=== PATIENT | male | born 1995 | race Caucasian/White ===

== ENCOUNTER 2017-09-07 09:37 | Emergency (ER) | payer SELFPAY ==
[2017-09-07 09:41] VITALS: BP 141/67
--- NOTE | 2017-09-07 10:20 | RAD ---
HISTORY: Pain, crush injury COMPARISONS: None VIEWS: 3, Frontal, lateral, and oblique views of the fifth digit of left hand FINDINGS: BONE DENSITY: Normal. BONES: There is a comminuted nondisplaced fracture of the tuft of the distal phalanx of the fifth digit JOINTS: There is no arthropathy. ALIGNMENT: There is no dislocation. SOFT TISSUES: Unremarkable. OTHER FINDINGS: None. IMPRESSION: COMMINUTED NONDISPLACED FRACTURE OF THE TUFT OF THE DISTAL PHALANX OF THE FIFTH DIGIT
--- NOTE | 2017-09-07 10:46 | ED ---
Upper Extremity Pain - HPI Summary HPI Summary: 21 male presents to ED with complaints of left pinky finger injury that occurred while at work just [employer]. Patient states he was using a machine when his tip of left pinky finger got crushed in between a piece of metal and wood. Admits to intense pain and some swelling. Denies taking any medications [employer]ERSON[employer]. No other injuries or complaints. No anticoagulant use. Unknown last tetanus. Admits to swelling and bruising. - History of Current Complaint Chief Complaint: EDExtremityUpper Stated Complaint: LT HAND INJURY Time Seen by Provider: 09/07/17 09:45 Hx Obtained From: Patient Mechanism Of Injury: Other - crush injury Onset/Duration: Started Hours Ago, Traumatic, Still Present, Worse Since Timing: Constant Severity Initially: Moderate Severity Currently: Moderate Pain Location: Finger - left fifth digit Character: Sharp, Aching, Throbbing Aggravating Factor(s): Movement Alleviating Factor(s): Compression Associated Signs & Symptoms: Positive: Swelling, Bruising Related History: Dominant Hand Right - Allergies/Home Medications Allergies/Adverse Reactions: Allergies Allergy/AdvReac Type Severity Reaction Status Date / Time No Known Allergies Allergy Verified 02/27/13 13:08 PMH/Surg Hx/FS Hx/Imm Hx Endocrine/Hematology History: Denies: Hx Anticoagulant Therapy, Hx Diabetes, Hx Thyroid Disease Cardiovascular History: Denies: Hx Hypertension, Hx Pacemaker/ICD Respiratory History: Denies: Hx Asthma, Hx Chronic Obstructive Pulmonary Disease (COPD) GI History: Denies: Hx Ulcer History: Denies: Hx Renal Disease Neurological History: Denies: Hx Dementia, Hx Seizures Psychiatric History: Denies: Hx Substance Abuse - Surgical History Surgery Procedure, Year, and Place: n/a - Immunization History Date of Tetanus Vaccine: updated today 09/07/17 Immunizations Up to Date: Yes Infectious Disease History: No Infectious Disease History: Denies: Hx Clostridium Difficile, Hx Hepatitis, Hx Human Immunodeficiency Virus (HIV), Traveled Outside the [place] in Last 30 Days - Family History Known Family History: Positive: None - Social History Alcohol Use: None Substance Use Type: Reports: None Smoking Status (MU): Never Smoked Tobacco Review of Systems Constitutional: Negative Cardiovascular: Negative Respiratory: Negative Positive: Arthralgia, Myalgia, Decreased ROM - left fifth digit, distal Positive: Other - laceration/abrasion Neurological: Negative All Other Systems Reviewed And Are Negative: Yes Physical Exam Triage Information Reviewed: Yes Vital Signs On Initial Exam: Initial Vitals Temp Pulse Resp BP Pulse Ox 98.7 F 74 18 141/67 98 09/07/17 09:38 09/07/17 09:38 09/07/17 09:38 09/07/17 09:38 09/07/17 09:38 Vital Signs Reviewed: Yes Appearance: Positive: Well-Appearing, Well-Nourished, Pain Distress - moderate Skin: Positive: Warm, Skin Color Reflects Adequate Perfusion, Dry, Other - after irrigation small superficial laceartion .5cm on fifth distal tuft, left hand lateral side of finger nail. minimal bleeding, with some subcutaneous/ adipose tissue sticking outside of wound. some other minor abrasions over tip of finger. no bleeding, closed and well approximated. ecchymosis and erythema of distal finger with nail eccchymosis, nailbed still intact however.. Negative : Cold, Numb, Cyanosis @, Pale, Erythema @ Eyes: Positive: Conjunctiva Clear ENT: Positive: Hearing grossly normal Neck: Positive: Supple, Nontender Respiratory/Lung Sounds: Positive: Clear to Auscultation, Breath Sounds Present. Negative: Rales, Rhonchi, Wheezes Cardiovascular: Positive: Normal, RRR, Pulses are Symmetrical in both Upper and Lower Extremities - 2+ radial bl. Negative: Murmur, Rub Musculoskeletal: Positive: Normal, Strength/ROM Intact, Pain @ - on palpation of distal tip fifth left digit, Edema Left - fifth distal DIP left, Other - no step off. Negative: Limited @, Interruption @ Neurological: Positive: Normal, Sensory/Motor Intact, Alert, Oriented to Person Place, Time, CN Intact II-III, NV Bundle Intact Distally, Normal Gait - [place] Coma Scale Coma Scale Total: 15 Procedures - Laceration/Wound Repair 1 Description: Linear - .5cm Anesthesia: Digital, 2.0%, Lido Length, Depth and Shape: .5cm linear left digit with tissue outside of wound Irrigated w/ Saline (ccs): 500 - high irrigation pressure used as well as soaking Laceration/Wound Explored: clean, no foreign body removed Closure: Skin Adhesive Debridement: external tissue placed back inside wound with forceps Sterile Dressing Applied?: Yes - telfa and xeroform Diagnostics - Vital Signs Vital Signs Temp Pulse Resp BP Pulse Ox 09/07/17 09:38 98.7 F 74 18 141/67 98 - Laboratory Lab Statement: Any lab studies that have been ordered have been reviewed, and results considered in the medical decision making process. - Radiology left fifth digit Xray Interpretation: Positive (See Comments) - COMMINUTED NONDISPLACED FRACTURE OF THE TUFT OF THE DISTAL PHALANX OF THE FIFTH DIGIT Radiology Interpretation Completed By: Radiologist Course/Dx - Course Course Of Treatment: xray obtained and showed communited nondisplaced fracture of tuft of distal left fifth digit. due to superficial laceration and abrasion on outside considered open fracture. will treat with antibiotics. wound was throughly irrigated and tissue placed back inside, small amount of skin adhesive used to close to prevent bleeding. dressed with xeroform and telfa. finger splint applied. RICE and ibuprofen. given ibuprofen while in ED. no concern for other etiology at this time. follow up ortho and pcp recheck. aware of worsening signs and symptoms. started on keflex. keep clean and dry. tetanus was updated today. - Diagnoses Differential Diagnosis/HQI/PQRI: Positive: Fracture (Open), Fracture (Closed), Strain, Sprain Provider Diagnoses: Fracture of finger, left, open Discharge - Discharge Plan Condition: Stable Disposition: HOME Prescriptions: Cephalexin CAP* [Keflex CAP*] 500 mg PO TID #30 cap Patient Education Materials: Finger Fracture (ED), Finger Laceration (ED) Referrals: Arie Hardin MD [Primary Care Provider] - Dat Mckeon MD [Medical Doctor] - Additional Instructions: Take prescribed antibiotic as directed. Recommend taking probiotics in between doses or eating japanese yogurt. Keep wounds clean and dry. Do not remove dressing for 2 days. At this time removed dressing, gently clean/rinse, apply triple anti-biotic and re-dress. Re-apply splint. Rest, ice, elevate. Ibuprofen for pain and inflammation. Take with food. Keep splint on until released by ortho/pcp. Follow up with ortho, call and make an appointment. Any new or worsening symptoms please seek medical attention promptly, as discussed (signs of infection, numbness/tingling etc.)
[2017-09-07] MEDS ORDERED: Lidocaine 2% 10 ML* VIAL INJ ONE (11:10)
[2017-09-07] MEDS ORDERED: Lidocaine 2% PF * 5 ML VIAL ONE (11:12)
[2017-09-07] MEDS ORDERED: Ibuprofen TAB* 600 MG PO ONE (11:36)
[2017-09-07] MEDS ORDERED: Cephalexin CAP* 500 MG PO ONE (11:36)
[2017-09-07] MEDS ORDERED: Tetan/Diph/Pertus SYR(Tdap)* 0.5 ML SYR(BOOSTRIX) use SYR IM ONE (11:39)
== END 2017-09-07 12:07 | disposition home or self-care (01) ==
LOC: ED 09:37
DX: S62.607B Fracture of unspecified phalanx of left little finger, initial encounter for open fracture (principal); W23.0XXA Caught, crushed, jammed, or pinched between moving objects, initial encounter; Y93.9 Activity, unspecified; Y92.9 Unspecified place or not applicable
CPT/HCPCS: 73140; 90471; 90715; 96374; 99282; A9270-GY; J2001

== ENCOUNTER 2018-03-10 21:44 | Emergency (ER) | payer BC ==
[2018-03-10] MEDS ORDERED: Al Hydrox/Mg Hydrox/Simet LIQ* 30 ML UDC PO ONE (22:15)
[2018-03-10] MEDS ORDERED: Famotidine IV* 10 MG/ML 2 ML (20 mg) IV SLOW PU ONE (22:15)
[2018-03-10 22:58] LABS: ABS Basophils 0.1 10^3/ul (0-0.2); ABS Eosinophils 0.3 10^3/ul (0-0.6); ABS Lymphocytes 2.2 10^3/ul (1.0-4.8); ABS Monocytes 0.8 10^3/ul (0-0.8); ABS Nucleated RBC 0 10^3/ul; Hematocrit 44 % (42-52); Hemoglobin 15.1 g/dl (14.0-18.0); Lymphocyte % 30.2 % (25-47); Mean Corpuscular HGB Conc 34 g/dl (31-36); Mean Corpuscular Hemoglobin 31 pg (27-31); Mean Corpuscular Volume 90 fL (80-94); Mean Platelet Volume 9.7 um3 (7.4-10.4); Nucleated Red Blood Cells % 0; Platelet Count 181 10^3/ul (150-450); Red Blood Count 4.92 10^6/ul (4.0-5.4); Red Cell Distribution Width 13 % (10.5-15); White Blood Count 7.4 10^3/ul (3.5-10.8)
[2018-03-10 23:21] LABS: EGFR Non-African American 76.4 (>60)
[2018-03-11] MEDS ORDERED: Famotidine TAB* 20 MG PO ONE (00:38)
[2018-03-11] MEDS ORDERED: Famotidine TAB* 20 MG ONE (00:38)
--- NOTE | 2018-03-11 01:20 | ED ---
Abdominal Pain/Male - HPI Summary HPI Summary: Complains of intermittent umbilical abdominal pain 2 days, sore throat 4 days , cough x 1 month.. Abdo Pain described as sharp, lasts a few seconds at a time , rated at 6 out of 10 when it occurs, and occurs about once every 6 hours. States history of same occasionally over the past few years but not usually this persistent. Unaware of any trigger for abdominal pain, states not related to eating. Denies fever, CP, SOB, N/V/D, change in urine or BM, penile or testicular symptoms. Medical history is none. Surgical history is none. Denies foreign travel - History of Current Complaint Chief Complaint: EDAbdPain Stated Complaint: ABD PAIN Time Seen by Provider: 03/11/18 00:12 Hx Obtained From: Patient Onset/Duration: Gradual Onset Timing: Intermittent, Lasting Seconds Severity Currently: Moderate Pain Intensity: 7 Pain Scale Used: 0-10 Numeric Location: Umbilical Radiates: No Character: Sharp Aggravating Factor(s): Other: Alleviating Factor(s): Nothing - Allergies/Home Medications Allergies/Adverse Reactions: Allergies Allergy/AdvReac Type Severity Reaction Status Date / Time No Known Allergies Allergy Verified 03/10/18 22:09 PMH/Surg Hx/FS Hx/Imm Hx Endocrine/Hematology History: Denies: Hx Anticoagulant Therapy, Hx Diabetes, Hx Thyroid Disease Cardiovascular History: Denies: Hx Hypertension, Hx Pacemaker/ICD Respiratory History: Denies: Hx Asthma, Hx Chronic Obstructive Pulmonary Disease (COPD) GI History: Denies: Hx Ulcer History: Denies: Hx Renal Disease Neurological History: Denies: Hx Dementia, Hx Seizures Psychiatric History: Denies: Hx Substance Abuse - Surgical History Surgery Procedure, Year, and Place: n/a - Immunization History Date of Tetanus Vaccine: updated today 09/07/17 Infectious Disease History: No Infectious Disease History: Denies: Hx Clostridium Difficile, Hx Hepatitis, Hx Human Immunodeficiency Virus (HIV), Traveled Outside the [place] in Last 30 Days - Family History Known Family History: Positive: None - Social History Alcohol Use: None Substance Use Type: Reports: None Smoking Status (MU): Never Smoked Tobacco Review of Systems Constitutional: Negative Eyes: Negative ENT: Negative Cardiovascular: Negative Respiratory: Negative Positive: Abdominal Pain Genitourinary: Negative Musculoskeletal: Negative Skin: Negative Neurological: Negative Psychological: Normal All Other Systems Reviewed And Are Negative: Yes Physical Exam Triage Information Reviewed: Yes Vital Signs On Initial Exam: Initial Vitals Temp Pulse Resp BP Pulse Ox 98.6 F 57 16 136/81 98 03/10/18 22:05 03/10/18 22:05 03/10/18 22:05 03/10/18 22:05 03/10/18 22:05 Vital Signs Reviewed: Yes Appearance: Positive: Well-Appearing Skin: Positive: Warm Head/Face: Positive: Normal Head/Face Inspection Eyes: Positive: Normal ENT: Positive: Pharyngeal erythema Neck: Positive: Supple Respiratory/Lung Sounds: Positive: Clear to Auscultation Cardiovascular: Positive: Normal Abdomen Description: Positive: Soft, Other: - Tender below umbilicus mildly Musculoskeletal: Positive: Normal Neurological: Positive: Normal Psychiatric: Positive: Normal AVPU Assessment: Alert - [place] Coma Scale Best Eye Response: 4 - Spontaneous Best Motor Response: 6 - Obeys Commands Best Verbal Response: 5 - Oriented Coma Scale Total: 15 Diagnostics - Vital Signs Vital Signs Temp Pulse Resp BP Pulse Ox 03/11/18 00:18 71 126/75 98 03/10/18 22:05 98.6 F 57 16 136/81 98 - Laboratory Lab Results: Lab Results 03/10/18 03/10/18 03/10/18 Range/Units 22:45 22:45 22:45 WBC 7.4 (3.5-10.8) 10^3/ul RBC 4.92 (4.0-5.4) 10^6/ul Hgb 15.1 (14.0-18.0) g/dl Hct 44 (42-52) % MCV 90 (80-94) fL MCH 31 (27-31) pg MCHC 34 (31-36) g/dl RDW 13 (10.5-15) % Plt Count 181 (150-450) 10^3/ul MPV 9.7 (7.4-10.4) um3 Neut % (Auto) 53.9 (38-83) % Lymph % (Auto) 30.2 (25-47) % Coffey % (Auto) 11.1 H (0-7) % Eos % (Auto) 4.0 (0-6) % Baso % (Auto) 0.8 (0-2) % Absolute Neuts (auto) 4.0 (1.5-7.7) 10^3/ul Absolute Lymphs (auto) 2.2 (1.0-4.8) 10^3/ul Absolute Monos (auto) 0.8 (0-0.8) 10^3/ul Absolute Eos (auto) 0.3 (0-0.6) 10^3/ul Absolute Basos (auto) 0.1 (0-0.2) 10^3/ul Absolute Nucleated RBC 0 10^3/ul Nucleated RBC % 0 Sodium 139 (139-145) mmol/L Potassium 4.4 (3.5-5.0) mmol/L Chloride 105 (101-111) mmol/L Carbon Dioxide 29 (22-32) mmol/L Anion Gap 5 (2-11) mmol/L BUN 17 (6-24) mg/dL Creatinine 1.20 H (0.67-1.17) mg/dL Est GFR ( Amer) 98.3 (>60) Est GFR (Non-Af Amer) 76.4 (>60) BUN/Creatinine Ratio 14.2 (8-20) Glucose 93 (70-100) mg/dL Lactic Acid 0.6 (0.5-2.0) mmol/L Calcium 9.2 (8.6-10.3) mg/dL Total Bilirubin 0.40 (0.2-1.0) mg/dL AST 19 (13-39) U/L ALT 22 (7-52) U/L Alkaline Phosphatase 72 (34-104) U/L C-Reactive Protein 6.54 H (< 5.00) mg/L Total Protein 6.6 (6.4-8.9) g/dL Albumin 4.3 (3.2-5.2) g/dL Globulin 2.3 (2-4) g/dL Albumin/Globulin Ratio 1.9 (1-3) Lipase 21 (11.0-82.0) U/L Result Diagrams: 03/10/18 22:45 03/10/18 22:45 Lab Statement: Any lab studies that have been ordered have been reviewed, and results considered in the medical decision making process. Abdominal Pain Fem Course/Dx - Course Course Of Treatment: Vital signs within normal limits. Labs unremarkable except for CRP. Symptoms consistent with viral syndrome. Recommend follow-up with primary care - Diagnoses Provider Diagnoses: Viral syndrome, Abdominal pain Discharge - Sign-Out/Discharge Documenting (check all that apply): Discharge/Admit/Transfer - Discharge Plan Condition: Stable Disposition: HOME Patient Education Materials: Viral Syndrome (ED), Acute Abdominal Pain (ED) Referrals: Arie Hardin MD [Primary Care Provider] - Additional Instructions: Follow-up with primary care. Return to the ED for any new or worsening symptoms - Billing Disposition and Condition Condition: STABLE Disposition: HOME
[2018-03-11 03:15] VITALS: BP 118/64
== END 2018-03-11 03:14 | disposition home or self-care (01) ==
LOC: ED 21:44
DX: B34.9 Viral infection, unspecified (principal); R10.9 Unspecified abdominal pain
CPT/HCPCS: 36415; 80053; 83605; 83690; 85025; 86140; 87651; 96374; 99283; A9270-GY